=== PATIENT | male | born 1955 | race Caucasian/White ===

== ENCOUNTER 2016-12-22 07:57 | Emergency (ER) | payer MEDICAID ==
--- NOTE | 2016-12-22 09:10 | ER PHYSICIAN DOCUMENTATION ---
Physician Documentation [facility] Name:Alhaji Zurita Age:61 yrs Sex:Male :1955 Arrival Date:12/22/2016 Time:07:57 Bed1 Private MD:Ehsan Combs ED, Chris Disposition: 12/21 09:00 Chart complete. cd Disposition: 12/22/16 08:45 Discharged to Home/Self Care. Impression: BPH with urinary retention. - Condition is Good. - Discharge Instructions: BPH (Enlarged Prostate), Adenoma, Prostatic - URINARY RETENTION, Male, Catheterization, Ureteral - HONG CATHETER CARE. - Medical Reconciliation form form. - Follow up: Luke Hoang MD; When: 7 - 10 days; Reason: Recheck today's complaints, Continuance of care. - Problem is an acute exacerbation. - Symptoms are resolved. - Notes: Return to the ED in 3 days for Hong Removal. Start taking Flomax 0.8mg by mouth 30 minutes after your evening meal once every day. HPI: 08:00 This 61 yrs old Male presents to ER via Private Vehicle with complaints of cd Trouble Voiding. 08:00 The patient presents with urinary symptoms, dribbling of urine, retention, unable to cd void. Onset: The symptom(s)/episode began/occurred acutely, last night, 4.5 hour(s) ago. Associated signs and symptoms: Pertinent positives: abdominal pain, Pertinent negatives: fever, nausea, vomiting. Severity of symptoms: At their worst the symptoms were moderate, in the emergency department the symptoms are unchanged. Historical: - Allergies: No known drug Allergies; - Home Meds: 1. Flomax Oral 2. vitamins Unknown daily - PMHx: BPH; Urinary Retention (November 14, 2016); - PSHx: NONE; - Ebola Screening: : Patient negative for fever greater than or equal to 101.5 degrees Fahrenheit, and additional compatible Ebola Virus Disease symptoms. Patient denies exposure to infectious person. Patient denies travel to an Ebola-affected area in the 21 days before illness onset. No symptoms or risks identified at this time. . - Social history: Smoking status: Patient states was never smoker of tobacco. ROS: 09:05 Constitutional: Positive for poor PO intake, Negative for chills, fever. cd 09:05 : Positive for pelvic pain, difficulty urinating, Negative for hematuria, flank pain, burning with urination. 09:05 All other systems are negative. Exam: 08:30 Constitutional: The patient appears alert, awake, non-diaphoretic, non-toxic, well cd developed, well nourished, anxious, in obvious distress, moderately distressed. 08:30 Abdomen/GI: Inspection: distension, that is moderate, in the suprapubic area, Bowel sounds: normal, Palpation: moderate abdominal tenderness, in the suprapubic area, Indicators: McBurney's point is not tender. 08:30 : CVA tenderness, is absent, Male external genitalia: normal, Bladder: distension, that is severe, tenderness, that is moderate, Rectal exam: Rectal tone: normal, Prostate: nonender, normal texture, enlarged. Vital Signs: 12/22 08:04 BP 167 / 114; Pulse 68; Resp 24; Temp 98.2(TE); Pulse Ox 90% ; Weight 90.72 kg; Height cb 5 ft. 9 in. (175.26 cm); Pain 8/10; 08:51 BP 151 / 107; Pulse 76; Pulse Ox 92% on R/A; cb 08:04 Body Mass Index 29.53 (90.72 kg, 175.26 cm) cb MDM: 12/21 08:15 Differential diagnosis: nonspecific abdominal pain, urinary retention, prostatitis. cd Data reviewed: vital signs, nurses notes, old medical records, and as a result, I will discharge patient, after we place a Hong Catheter. Data interpreted: Pulse oximetry: on room air is 92 %. Interpretation: normal. 08:40 Counseling: I had a detailed discussion with the patient and/or guardian regarding: the cd historical points, exam findings, and any diagnostic results supporting the discharge/admit diagnosis, lab results, the need for outpatient follow up, for a recheck, with the patient's primary care provider, to return to the emergency department if symptoms worsen or persist or if there are any questions or concerns that arise at home. Response to treatment: the patient's symptoms have markedly improved after treatment, the patient's condition has returned to base line, and as a result, I will discharge patient. 12/22 08:04 Patient medically screened. cd 12/22 08:04 Order name: Suri; Complete Time: 08:45 cd 12/22 08:04 Order name: Urine Dip; Complete Time: 08:45 cd 12/22 08:45 Order name: Bladder Scan by RN; Complete Time: 08:45 cb 12/22 08:45 Order name: Leg Bag; Complete Time: 08:45 cb Dispensed Medications: No medications were administered Point of Care Testing: Urine Dip: 08:36 pH: 5.5; ; Specific [place]: 1.020; Ketones: Negative; Glucose: Negative; Protein: cb Negative; Leukocytes: Negative; Nitrite: Negative ; Blood: Negative; Bilirubin: Negative ; Urobilinogen: Normal Signatures: Morena Garduno RN RN cb Haim Ramos MD MD cd
--- NOTE | 2016-12-22 09:10 | ER NURSING DOCUMENTATION ---
Nurse's Notes [facility] Name:Alhaji Zurita Age:61 yrs Sex:Male :1955 Arrival Date:12/22/2016 Time:07:57 Bed1 Private MD:Ehsan Combs Diagnosis:BPH with urinary retention Presentation: 12/22 07:59 Acuity: KURT 4 cb 07:59 Presenting complaint: Patient states: I am unable to pass my urine. Transition of care: cb Home. 07:59 Method Of Arrival: Private Vehicle cb 07:59 Notified ED Physician of patient's arrival and CC Dr. Ramos notified. cb Triage Assessment: 08:00 General: Appears uncomfortable, well groomed. cb 08:00 General: Behavior is cooperative. Pain: Complains of pain in suprapubic area. EENT: No cb deficits noted. Neuro: Level of Consciousness is awake, alert, Oriented to person, place, time, event. Cardiovascular: No deficits noted. Respiratory: Airway is patent Trachea midline Respiratory effort is even, unlabored, Respiratory pattern is regular, symmetrical. GI: No deficits noted. : Reports inability to void since 0340am. Derm: No deficits noted. Musculoskeletal: No deficits noted. Historical: - Allergies: No known drug Allergies; - Home Meds: 1. Flomax Oral 2. vitamins Unknown daily - PMHx: BPH; Urinary Retention (November 14, 2016); - PSHx: NONE; - Ebola Screening: : Patient negative for fever greater than or equal to 101.5 degrees Fahrenheit, and additional compatible Ebola Virus Disease symptoms. Patient denies exposure to infectious person. Patient denies travel to an Ebola-affected area in the 21 days before illness onset. No symptoms or risks identified at this time. . - Social history: Smoking status: Patient states was never smoker of tobacco. Screenin:51 Infectious Disease Risk None. Abuse screen: Denies threats or abuse. Denies injuries cb from another. Nutritional screening: No deficits noted. Vital Signs: 08:04 BP 167 / 114; Pulse 68; Resp 24; Temp 98.2(TE); Pulse Ox 90% ; Weight 90.72 kg; Height cb 5 ft. 9 in. (175.26 cm); Pain 8/10; 08:51 BP 151 / 107; Pulse 76; Pulse Ox 92% on R/A; cb 08:04 Body Mass Index 29.53 (90.72 kg, 175.26 cm) cb ED Course: 07:57 Patient arrived in ED. ds 07:58 Ehsan Combs is Private Physician. ds 07:59 Morena Garduno, RN is Primary Nurse. cb 07:59 Triage completed. cb 08:04 Haim Ramos MD is Attending Physician. cd 08:15 Mccord cath inserted 16 Fr. Balloon inflated. To gravity drainage. Urine specimen cb collected. returned clear yellow urine. Patient tolerated well. 08:15 Bladder Scan performed. Volume in cc: 550. cb 08:42 Valuables Remains with patient Patient has correct armband on for positive cb identification. Bed in low position. Call light in reach. 08:45 Luke Hoang MD is Referral Physician. cd Administered Medications: No medications were administered Point of Care Testing: Urine Dip: 08:36 pH: 5.5; ; Specific [place]: 1.020; Ketones: Negative; Glucose: Negative; Protein: cb Negative; Leukocytes: Negative; Nitrite: Negative ; Blood: Negative; Bilirubin: Negative ; Urobilinogen: Normal Output: 09:10 Urine: 650ml (Mccord); Total: 650ml. cb Outcome: 08:45 Discharge ordered by . cd 09:09 Patient left the ED. cb 09:10 Discharged to home ambulatory. cb 09:10 Condition: good 09:10 Discharge Assessment: Patient awake, alert and oriented x 3. No cognitive and/or functional deficits noted. Patient verbalized understanding of disposition instructions. 09:10 Discharge instructions given to patient, Instructed on discharge instructions, follow up and referral plans. Demonstrated understanding of instructions. Signatures: Morena Garduno, CHERISE RN cb Srot, Libby, Reg Reg ds Haim Ramos MD MD cd
== END 2016-12-22 09:10 | disposition home or self-care (01) ==
LOC: ER 07:57
DX: N40.1 Benign prostatic hyperplasia with lower urinary tract symptoms (principal); R33.9 Retention of urine, unspecified; R10.2 Pelvic and perineal pain; N32.89 Other specified disorders of bladder; Z46.6 Encounter for fitting and adjustment of urinary device; Z79.899 Other long term (current) drug therapy
CPT/HCPCS: 51702; 99284

== ENCOUNTER 2016-12-22 11:03 | Emergency (ER) | payer MEDICAID ==
--- NOTE | 2016-12-22 11:32 | ER PHYSICIAN DOCUMENTATION ---
Physician Documentation [facility] Name:Alhaji Zurita Age:61 yrs Sex:Male :1955 Arrival Date:12/22/2016 Time:11:03 Bed1 Private MD:Ehsan Combs ED, Chris Disposition: 12/22 11:05 Chart complete. cd Disposition: 12/22/16 11:28 Discharged to Home/Self Care. Impression: BPH with urinary retention. - Condition is Good. - Discharge Instructions: BPH (Enlarged Prostate), Catheterization, Ureteral - HONG CATHETER CARE. - Medical Reconciliation form form. - Follow up: Luke Hoang MD; When: 1 week; Reason: Recheck today's complaints, Continuance of care. - Problem is new. - Symptoms are resolved. - Notes: Return in 3 days for catheter removal. Return sooner if any problems arise. Take Flomax 0.8 mg by mouth 30 minutes after your evening meal each evening once per day. Lie down after your first few doses. Drink plenty of fluids. HPI: 11:05 This 61 yrs old Male presents to ER via Private Vehicle with complaints of cd Urinary Problem / Hong Recheck Only by nurse. 11:05 Patient was here earlier today for urinary retention. Urine started leaking around the cd catheter. No other symptoms. Patient returned for a Hong Cath recheck and was seen ONLY by the ED RN. NO MD CHARGE. NOT SEEN BY MD.. Vital Signs: 11:21 BP 141 / 84; Pulse 84; Resp 18; Temp 98.0; Pulse Ox 95% ; Weight 90.72 kg; Height 5 ft. ma 9 in. (175.26 cm); Pain 0/10; 11:21 Body Mass Index 29.53 (90.72 kg, 175.26 cm) ma MDM: 11:20 Patient medically screened. cd Dispensed Medications: No medications were administered Signatures: Michelle Paula RN RN Haim Gilbert MD MD cd
--- NOTE | 2016-12-22 11:32 | ER NURSING DOCUMENTATION ---
Nurse's Notes [facility] Name:Alhaji Zurita Age:61 yrs Sex:Male :1955 Arrival Date:12/22/2016 Time:11:03 Bed1 Private MD:Ehsan Combs Diagnosis:BPH with urinary retention Presentation: 12/22 11:11 Acuity: KURT 4 ma 11:22 Presenting complaint: Patient states: Pt here earlier for cath insertion Pt began ma leaking urine around cath approx 1 hour after leaving Here for gomez recheck only. Transition of care: Home. 11:22 Method Of Arrival: Private Vehicle ma Assessment: 11:22 Pain: Denies pain. ma Vital Signs: 11:21 BP 141 / 84; Pulse 84; Resp 18; Temp 98.0; Pulse Ox 95% ; Weight 90.72 kg; Height 5 ft. ma 9 in. (175.26 cm); Pain 0/10; 11:21 Body Mass Index 29.53 (90.72 kg, 175.26 cm) ma ED Course: 11:05 Patient arrived in ED. ds 11:05 Ehsan Combs is Private Physician. ds 11:11 Michelle Paula, CHERISE is Primary Nurse. ma 11:11 Triage completed. ma 11:20 Haim Ramos MD is Attending Physician. cd 11:24 Gomez cath flushed Patient tolerated well. ma 11:27 Luke Hoang MD is Referral Physician. cd Administered Medications: No medications were administered Outcome: 11:28 Discharge ordered by MD. cd 11:30 Discharged to home ma 11:30 Condition: stable 11:30 Instructed on discharge instructions. 11:30 Recheck visit only other Gomez 11:31 Patient left the ED. ma Signatures: Michelle Paula, RN RN geno Mart, Libby, Reg Reg ds Haim Ramos MD MD cd
== END 2016-12-22 11:32 | disposition home or self-care (01) ==
LOC: ER 11:03
DX: T83.038A Leakage of other urinary catheter, initial encounter (principal); Z46.6 Encounter for fitting and adjustment of urinary device; N40.1 Benign prostatic hyperplasia with lower urinary tract symptoms; R33.9 Retention of urine, unspecified
CPT/HCPCS: 99281

== ENCOUNTER 2016-12-22 15:48 | Emergency (ER) | payer MEDICAID ==
[2016-12-22] MEDS ORDERED: LIDOCAINE HCL 2% URO-JET 5 ML JEL.PF.APP MUCOUS MEM ONE (16:18)
[2016-12-22] MEDS ORDERED: LORazepam 1 MG TABLET ONE (18:29)
--- NOTE | 2016-12-22 20:12 | ER PHYSICIAN DOCUMENTATION ---
Physician Documentation [facility] Name:Alhaji Zurita Age:61 yrs Sex:Male :1955 Arrival Date:12/22/2016 Time:15:48 Bed4 Private MD:Ehsan Combs ED, Chris Disposition: 12/22/16 19:13 Discharged to Home/Self Care. Impression: BPH with urinary retention. - Condition is Fair. - Discharge Instructions: BPH (Enlarged Prostate), Catheterization, Ureteral - HONG CATHETER CARE. - Medical Reconciliation form form. - Follow up: Luke Hoang MD; When: 12/24/2016; Reason: Recheck today's complaints, Continuance of care. - Problem is new. - Symptoms are resolved. - Notes: Lie supine tonight to allow your catheter to function well. If it does not function, try turning on your side...or the other side. If needed, flush the port of the catheter. Follow up with Dr. Vazquez at 11:00 AM on . HPI: 12/22 15:55 This 61 yrs old Male presents to ER via Private Vehicle with complaints of cd Recheck of Hong Catheter placed today...continues to leak around the catheter when standing. 15:55 The patient presents with a Hong catheter problem, is leaking urine. Onset: The cd symptom(s)/episode began/occurred acutely, today, This is the third time the patient has returned to the ED for this problem.. Modifying factors: The symptoms are alleviated by nothing, the symptoms are aggravated by urinating. Associated signs and symptoms: The patient has no apparent associated signs or symptoms. The patient has experienced similar episodes in the past, multiple times, and the symptoms today are exactly the same. The patient arrived to the ED this morning with Urinary retention due to enlarged bladder. His bladder scan revealed 520 ml urine in his bladder. A Coud? catheter was appropriately placed by the nurse. The patient returned 1 hour later this morning. The catheter was checked, flushed, found to be working. He was dc'd. The patient returned a third time today and a larger irrigating catheter was placed without difficulty. His bladder was irrigated. No clots, blood or tissue was noted. He was then dc'd from the ED. . Historical: - Allergies: No known drug Allergies; - Home Meds: 1. Flomax Oral 2. vitamins - PMHx: BPH; Hypertension; - PSHx: ankle surgery; - Tetanus: < 10 years. - Ebola Screening: : Patient negative for fever greater than or equal to 101.5 degrees Fahrenheit, and additional compatible Ebola Virus Disease symptoms. Patient denies exposure to infectious person. Patient denies travel to an Ebola-affected area in the 21 days before illness onset. No symptoms or risks identified at this time. . - Immunization history: Flu Vaccine None. - Social history: Smoking status: Patient states was never smoker of tobacco. ROS: 18:40 Constitutional: Positive for poor PO intake, Negative for chills, fever. cd 18:40 Back: Negative for pain at rest. 18:40 : Positive for Hong Catheter problem, Negative for hematuria, burning with urination, foul smelling urine. 18:40 All other systems are negative. Exam: 18:40 Constitutional: This is a well developed, well nourished patient who is awake, alert, cd and in no acute distress. Abdomen/GI: Soft, non-tender, with normal bowel sounds. No distension or tympany. No guarding or rebound. No evidence of tenderness throughout. 18:40 Skin: Warm, dry with normal turgor. Normal color with no rashes, no lesions, and no cd evidence of cellulitis. 18:40 : CVA tenderness, is absent, Male external genitalia: normal, Bladder: is normal, non-distended, non-tender, Rectal exam: Prostate: boggy, enlarged, a hong is noted, to gravity drainage, 3-way catheter is employed, urine is clear. Vital Signs: 19:08 BP 162 / 99; Pulse 75; Resp 22; Temp 97.6(O); Pulse Ox 90% ; Weight 41.15 kg; Height 5 cb ft. 9 in. (175.26 cm); Pain 5/10; 19:08 Body Mass Index 13.40 (41.15 kg, 175.26 cm) cb MDM: 19:00 Physician consultation: Dr. Radha SIFUENTES was called at 18:50, was contacted at 18:55, cd regarding consult, patient's condition, outpatient follow-up, in 2-3 days, We discussed the problem. Dr. Garcia, Urologist operations supervisor 2nd shift, believes this is a mechanical problem. He states that the patient probably has an enlarged Medial Lobe of the Prostate and when he stands, it occludes the Hong opening, causing the patient to leak around the Hong Catheter. Once we know it is located in the right position, he needs to lie down tonight and keep from standing too long. He should follow up with Dr. Hoang or George in 2 days on his appointment time.. 19:10 Data reviewed: vital signs, nurses notes, old medical records, and as a result, I will cd discharge patient. Data interpreted: Pulse oximetry: on room air is 90 %. Interpretation: normal. Counseling: I had a detailed discussion with the patient and/or guardian regarding: the historical points, exam findings, and any diagnostic results supporting the discharge/admit diagnosis, the need for outpatient follow up, for a recheck, with the patient's primary care provider, to return to the emergency department if symptoms worsen or persist or if there are any questions or concerns that arise at home. 19:13 Patient medically screened. cd 12/22 18:04 Order name: Hong; Complete Time: 18:04 cb Dispensed Medications: 18:19 Drug: Ativan 1 mg; Route: PO; ma 18:35 Follow up: Response: Anxiety decreased cb Signatures: Morena Garduno RN RN cb Abuso, Melanie, RN RN ma Daley, Chris, MD MD cd Hofsess, Rachel
--- NOTE | 2016-12-22 20:12 | ER NURSING DOCUMENTATION ---
Nurse's Notes [facility] Name:Alhaji Zurita Age:61 yrs Sex:Male :1955 Arrival Date:12/22/2016 Time:15:48 Bed4 Private MD:Ehsan Combs Diagnosis:BPH with urinary retention Presentation: 12/22 16:06 Acuity: KURT 4 cb 18:35 Presenting complaint: Patient states: Mccord leaking and draiing. Transition of care: cb Home. 18:35 Method Of Arrival: Private Vehicle cb Triage Assessment: 18:38 General: Appears distressed, well groomed, Behavior is cooperative. Pain: Complains of cb pain in suprapubic area. EENT: No deficits noted. Neuro: Level of Consciousness is awake, alert, Oriented to person, place, time, event. Cardiovascular: Pulses are 2+ in right radial artery and left radial artery. Respiratory: Airway is patent Trachea midline Respiratory effort is even, unlabored, Respiratory pattern is regular, symmetrical. GI: Reports tolerance of fluids, tolerance of food. : Mccord in place to gravity drainage patient states draining around catheter @ home. 19:06 : Reports urine around 3 way catheter while in BR. cb 19:32 Derm: No deficits noted. Musculoskeletal: No deficits noted. cb Historical: - Allergies: No known drug Allergies; - Home Meds: 1. Flomax Oral 2. vitamins - PMHx: BPH; Hypertension; - PSHx: ankle surgery; - Tetanus: < 10 years. - Ebola Screening: : Patient negative for fever greater than or equal to 101.5 degrees Fahrenheit, and additional compatible Ebola Virus Disease symptoms. Patient denies exposure to infectious person. Patient denies travel to an Ebola-affected area in the 21 days before illness onset. No symptoms or risks identified at this time. . - Immunization history: Flu Vaccine None. - Social history: Smoking status: Patient states was never smoker of tobacco. Screenin:08 Infectious Disease Risk None. Abuse screen: Denies threats or abuse. Denies injuries cb from another. Nutritional screening: No deficits noted. Vital Signs: 19:08 BP 162 / 99; Pulse 75; Resp 22; Temp 97.6(O); Pulse Ox 90% ; Weight 41.15 kg; Height 5 cb ft. 9 in. (175.26 cm); Pain 5/10; 19:08 Body Mass Index 13.40 (41.15 kg, 175.26 cm) cb ED Course: 15:49 Patient arrived in ED. ds 15:49 Ehsan Combs is Private Physician. ds 16:06 Morena Garduno, RN is Primary Nurse. cb 16:06 Triage completed. cb 16:30 16 Fr coud? Mccord catheter. cb 17:44 Haim Ramos MD is Attending Physician. cd 18:45 Mccord cath inserted 20 Fr. Balloon inflated. To gravity drainage. returned lila urine. cb Patient tolerated well. 19:07 Bladder irrigated via Mccord with 250 ml normal saline returned yellow urine. cb 19:08 Valuables Remains with patient. cb 19:11 Luke Hoang MD is Referral Physician. cd Administered Medications: 18:19 Drug: Ativan 1 mg; Route: PO; ma 18:35 Follow up: Response: Anxiety decreased cb Outcome: 19:07 Report given to CHERISE Cornell cb 19:13 Discharge ordered by . cd 20:11 Discharged to home via wheelchair, with significant other. 20:11 Condition: improved 20:11 Discharge Assessment: Patient awake, alert and oriented x 3. No cognitive and/or functional deficits noted. Patient verbalized understanding of disposition instructions. 20:11 Discharge instructions given to patient, significant other, Instructed on discharge instructions, follow up and referral plans. Demonstrated understanding of instructions. 20:11 Patient left the ED. 12/23 09:20 Discharge F/U Call: Spoke with: patient. Overall Care on a scale of 1-[address] being the best care, you rate our care as: Other comments: every thing is working the way it should. pt has no questions or concerns. Signatures: Morena Garduno, RN Viviane Bergman cb, RN RN st Abuso, Melanie RN CHERISE lora Srot, Libby, Reg Reg Haim Kaur MD MD cd Hofsess, Rachel
== END 2016-12-22 20:12 | disposition home or self-care (01) ==
LOC: ER 15:48
DX: T83.038A Leakage of other urinary catheter, initial encounter (principal); Z46.6 Encounter for fitting and adjustment of urinary device; N40.1 Benign prostatic hyperplasia with lower urinary tract symptoms; R33.9 Retention of urine, unspecified
CPT/HCPCS: 99284